=== PATIENT | male | born 1950 ===

== ENCOUNTER 2017-08-15 07:47 | Outpatient (CLI) | payer MEDICARE ==
--- NOTE | 2017-08-15 08:52 | RAD ---
PA AND LATERAL CHEST XRAY: DATE: 08/15/17. HISTORY: Hypertension. COMPARISON: None available. FINDINGS: Cardiac silhouette and pulmonary vasculature are within normal limits. There is a curvilinear densit y seen in the left hilar region probably related to superimposition of structures and vasculature. L ungs are clear. Degenerative change is seen in the spine with calcification of anterior longitudinal ligament. IMPRESSION: No acute cardiopulmonary process. POS: [facility]
== END 2017-08-15 07:48 | disposition home or self-care (01) ==
LOC: RAD-FRANK 07:47
PROVIDERS: ATTEND Nurse Practitioner Family
DX: I10 Essential (primary) hypertension (principal)
CPT/HCPCS: 71046

== ENCOUNTER 2017-08-21 08:46 | Outpatient (CLI) | payer MEDICARE ==
--- NOTE | 2017-08-21 10:36 | RAD ---
RIGHT MIDDLE FINGER 3 VIEWS: Date: 08/21/17 HISTORY: Finger pain. FINDINGS: Small subcortical cysts are partially visualized at the wrist. Joint spaces are preserved. Minimal os teophytosis. No acute fracture, dislocation, or aggressive osseous erosions. IMPRESSION: Very mild degenerative changes. No acute osseous abnormalities are demonstrated. POS: [facility]
== END 2017-08-21 08:47 | disposition home or self-care (01) ==
LOC: RAD-FRANK 08:46
PROVIDERS: ATTEND Nurse Practitioner Family
DX: M19.041 Primary osteoarthritis, right hand (principal)

== ENCOUNTER 2018-02-01 09:11 | Outpatient (CLI) | payer MEDICARE, OTHER ==
--- NOTE | 2018-02-01 11:47 | RAD ---
LEFT HIP 2 VIEWS: Date: 02/01/18 PROVIDED CLINICAL HISTORY: Left hip pain. FINDINGS: There is no evidence for fracture or other acute osseous abnormality. Alignment appears anatomic. Lef t hip joint space appears preserved. There is acetabular overcoverage and lack of concavity at the la teral femoral head/neck junction, morphologic changes which can predispose to femoral/acetabular impi ngement. IMPRESSION: 1. No evidence for an acute osseous abnormality or significant arthropathy. 2. Morphologic changes of the left proximal femur and acetabulum that may predispose to femoral/acet abular impingement. POS: [facility]
== END 2018-02-01 09:12 | disposition home or self-care (01) ==
LOC: RAD-FRANK 09:11
PROVIDERS: ATTEND Nurse Practitioner Family
DX: M25.552 Pain in left hip (principal); M25.852 Other specified joint disorders, left hip

== ENCOUNTER 2018-05-14 11:06 | Outpatient (CLI) | payer MEDICARE, OTHER ==
--- NOTE | 2018-05-14 12:12 | RAD ---
PA AND LATERAL CHEST: Date: 05/14/18 HISTORY: Cough. COMPARISON: 08/15/17. FINDINGS: Heart size and mediastinum are within normal limits. Lungs are clear of infiltrates. Arthritic change s of spine noted. IMPRESSION: No active intrathoracic disease. POS: [facility]
== END 2018-05-14 11:07 | disposition home or self-care (01) ==
LOC: RAD-FRANK 11:06
PROVIDERS: ATTEND Nurse Practitioner Family
DX: R05 Cough (principal)
CPT/HCPCS: 71046